=== PATIENT | female | born 1990 | race Caucasian/White ===

== ENCOUNTER 2017-03-28 14:48 | Emergency (ER) | payer OTHER, MEDICAID | END 2017-03-28 16:24 | disposition home or self-care (01) | LOC: E/R 14:48 | DX: J45.901 Unspecified asthma with (acute) exacerbation (principal) | CPT/HCPCS: 99284; Z7502 ==

== ENCOUNTER 2018-03-07 11:45 | Outpatient (CLI) | payer BC ==
[2018-03-07 12:24] LABS: ADD MAN DIFF? NO
[2018-03-07 12:38] LABS: ABNORMAL IP MESSAGE 1; BASOPHILS % 0.4 % (0.0-2.0); EOSINOPHILS # 0.1 10^3/ul (0.0-0.5); EOSINOPHILS % 1.5 % (0.0-7.0); HEMATOCRIT 37.9 % (37.0-47.0); LYMPHOCYTES # 2.3 10^3/ul (0.8-2.9); LYMPHOCYTES % 28.2 % (15.0-51.0); MEAN CORPUSCULAR HEMOGLOBIN 31.6 pg (29.0-33.0); MEAN CORPUSCULAR HGB CONC 34.3 g/dl (32.0-37.0); MEAN CORPUSCULAR VOLUME 92.2 fl (82.0-101.0); MEAN PLATELET VOLUME 13.4 fl (7.4-10.4); MONOCYTE # 0.7 10^3/ul (0.3-0.9); MONOCYTES % 8.7 % (0.0-11.0); NEUTROPHIL # 4.8 10^3/ul (1.6-7.5); NEUTROPHILS % 60.5 % (39.0-77.0); PLATELET COUNT 158 10^3/UL (140-415); RED BLOOD COUNT 4.11 10^6/ul (4.20-5.40); RED CELL DISTRIBUTION WIDTH 12.8 % (11.5-14.5)
[2018-03-07 13:00] LABS: ALANINE AMINOTRANSFERASE 16 IU/L (13-69); ALBUMIN/GLOBULIN RATIO 1.11; ALKALINE PHOSPHATASE 156 IU/L (42-121); ANION GAP 7 (5-13); ASPARTATE AMINO TRANSFERASE 25 IU/L (15-46); BILIRUBIN,INDIRECT 0.1 mg/dl (0-1.1); BILIRUBIN,TOTAL 0.1 mg/dl (0.2-1.3); BLOOD UREA NITROGEN 10 mg/dl (7-20); CALCIUM 9.7 mg/dl (8.4-10.2); CARBON DIOXIDE 21 mmol/L (21-31); CHLORIDE 107 mmol/L (97-110); CREATININE 0.61 mg/dl (0.44-1.00); Estimated GFR > 60 mL/min (>60); GLUCOSE 87 mg/dl (70-220); POTASSIUM 4.1 mmol/L (3.5-5.1); SODIUM 135 mmol/L (135-144); TOTAL PROTEIN 7.6 g/dl (6.1-8.1); URIC ACID 5.3 mg/dl (3.1-7.9)
[2018-03-07 13:06] LABS: INR 0.89; PROTIME 12.1 Sec (11.9-14.9); PT RATIO 0.9
[2018-03-07 13:07] LABS: PARTIAL THROMBOPLASTIN TIME 24.7 Sec (23.0-35.0)
[2018-03-07 13:32] LABS: ADD UMIC YES; UR ASCORBIC ACID NEGATIVE (NEGATIVE); UR BACTERIA MANY /HPF (NONE SEEN); UR BILIRUBIN (Dip) NEGATIVE (NEGATIVE); UR BLOOD (Dip) NEGATIVE (NEGATIVE); UR CLARITY SLIGHTLY CLOUDY (CLEAR); UR COLOR YELLOW (YELLOW); UR GLUCOSE (Dip) NEGATIVE (NEGATIVE); UR KETONES (Dip) NEGATIVE (NEGATIVE); UR LEUKOCYTE ESTERASE (Dip) 3+ Leu/ul (NEGATIVE); UR NITRITE (Dip) NEGATIVE (NEGATIVE); UR RBC 3 /HPF (0-5); UR SPECIFIC GRAVITY (Dip) 1.005 (1.003-1.030); UR SQUAMOUS EPITHELIAL CELL MANY /HPF (FEW); UR TOTAL PROTEIN (Dip) NEGATIVE (NEGATIVE); UR UROBILINOGEN (Dip) NEGATIVE (NEGATIVE); UR WBC > 182 /HPF (0-5)
[2018-03-07] MEDS: BETAMET NA PHOS/AC(6 MG/ML) 2 ML INJ SYG IM (14:52)
== END 2018-03-07 15:09 | disposition home or self-care (01) ==
LOC: OBT 11:45 → L-D 11:46 → OBT 15:09
DX: O13.3 Gestational [pregnancy-induced] hypertension without significant proteinuria, third trimester (principal); Z3A.36 36 weeks gestation of pregnancy
CPT/HCPCS: 76818; 80053; 81001; 84560; 85025; 85384; 85610; 85730

== ENCOUNTER 2018-03-08 14:50 | Outpatient (CLI) | payer BC ==
[2018-03-08] MEDS: BETAMET NA PHOS/AC(6 MG/ML) 2 ML INJ SYG IM (15:27)
== END 2018-03-08 16:17 | disposition home or self-care (01) ==
LOC: OBT 14:50 → L-D 14:52 → OBT 16:17
DX: O16.3 Unspecified maternal hypertension, third trimester (principal); Z3A.36 36 weeks gestation of pregnancy
CPT/HCPCS: 76818; 96372

== ENCOUNTER 2018-03-13 05:35 | Inpatient (IN) | payer BC ==
[2018-03-13 08:05] LABS: ADD MAN DIFF? NO
[2018-03-13 08:07] LABS: WHITE BLOOD COUNT 11.5 10^3/ul (4.8-10.8)
[2018-03-13 08:07] LABS: BASOPHIL # 0.1 10^3/ul (0.0-0.1); BASOPHILS % 0.4 % (0.0-2.0); EOSINOPHILS % 0.3 % (0.0-7.0); HEMATOCRIT 39.5 % (37.0-47.0); HEMOGLOBIN 13.4 g/dl (12.0-16.0); LYMPHOCYTES # 2.7 10^3/ul (0.8-2.9); LYMPHOCYTES % 23.8 % (15.0-51.0); MEAN CORPUSCULAR HEMOGLOBIN 31.3 pg (29.0-33.0); MEAN CORPUSCULAR HGB CONC 33.9 g/dl (32.0-37.0); MEAN CORPUSCULAR VOLUME 92.3 fl (82.0-101.0); MEAN PLATELET VOLUME 12.9 fl (7.4-10.4); MONOCYTE # 0.9 10^3/ul (0.3-0.9); MONOCYTES % 7.6 % (0.0-11.0); NEUTROPHIL # 7.7 10^3/ul (1.6-7.5); NEUTROPHILS % 67.1 % (39.0-77.0); PLATELET COUNT 163 10^3/UL (140-415); RED BLOOD COUNT 4.28 10^6/ul (4.20-5.40); RED CELL DISTRIBUTION WIDTH 12.6 % (11.5-14.5)
[2018-03-13 08:12] LABS: ADD UMIC YES; UR ASCORBIC ACID NEGATIVE (NEGATIVE); UR BACTERIA MANY /HPF (NONE SEEN); UR BILIRUBIN (Dip) NEGATIVE (NEGATIVE); UR BLOOD (Dip) 3+ mg/dL (NEGATIVE); UR CLARITY CLEAR (CLEAR); UR COLOR STRAW (YELLOW); UR GLUCOSE (Dip) NEGATIVE (NEGATIVE); UR KETONES (Dip) NEGATIVE (NEGATIVE); UR LEUKOCYTE ESTERASE (Dip) NEGATIVE Leu/ul (NEGATIVE); UR NITRITE (Dip) NEGATIVE (NEGATIVE); UR RBC 0 /HPF (0-5); UR SPECIFIC GRAVITY (Dip) 1.004 (1.003-1.030); UR SQUAMOUS EPITHELIAL CELL FEW /HPF (FEW); UR TOTAL PROTEIN (Dip) NEGATIVE (NEGATIVE); UR UROBILINOGEN (Dip) NEGATIVE (NEGATIVE); UR WBC 1 /HPF (0-5)
[2018-03-13 08:26] LABS: PROTIME 11.2 Sec (11.9-14.9); PT RATIO 0.9
[2018-03-13 08:27] LABS: PARTIAL THROMBOPLASTIN TIME 23.6 Sec (23.0-35.0)
[2018-03-13 08:30] LABS: ALANINE AMINOTRANSFERASE 24 IU/L (13-69); ALBUMIN 3.9 g/dl (3.3-4.9); ALBUMIN/GLOBULIN RATIO 1.08; ALKALINE PHOSPHATASE 156 IU/L (42-121); ANION GAP 14 (5-13); ASPARTATE AMINO TRANSFERASE 24 IU/L (15-46); BILIRUBIN,INDIRECT 0.2 mg/dl (0-1.1); BILIRUBIN,TOTAL 0.2 mg/dl (0.2-1.3); BLOOD UREA NITROGEN 11 mg/dl (7-20); CALCIUM 9.6 mg/dl (8.4-10.2); CARBON DIOXIDE 21 mmol/L (21-31); CHLORIDE 103 mmol/L (97-110); CREATININE 0.55 mg/dl (0.44-1.00); Estimated GFR > 60 mL/min (>60); GLUCOSE 92 mg/dl (70-220); POTASSIUM 4.5 mmol/L (3.5-5.1); SODIUM 138 mmol/L (135-144); TOTAL PROTEIN 7.5 g/dl (6.1-8.1); URIC ACID 5.8 mg/dl (3.1-7.9)
[2018-03-13] MEDS ORDERED: MINERAL OIL LIGHT 10 ML VIAL TOP (09:30)
[2018-03-13] MEDS ORDERED: IBUPROFEN 600 MG TAB PO (09:30)
[2018-03-13] MEDS ORDERED: CARBOPROST 250 MCG INJ IM (09:30)
[2018-03-13] MEDS ORDERED: MISOPROSTOL 200 MCG TAB PR (09:30)
[2018-03-13] MEDS ORDERED: METHYLERGONOVINE 0.2 MG INJ IM (09:30)
[2018-03-13] MEDS ORDERED: AMPICILLIN 2 GM/NS (PMX) 100 ML IV (09:30)
[2018-03-13] MEDS ORDERED: OXYTOCIN 30 UNITS/LR 500 ML IV (09:30)
[2018-03-13] MEDS ORDERED: LIDOCAINE 1% (MPF) 30 ML INJ INJ (09:30)
[2018-03-13] MEDS: LACTATED RINGER'S 1,000 ML IV ×4 (09:41→21:45)
[2018-03-13] MEDS: OXYTOCIN 30 UNITS/LR 500 ML IV (10:33)
[2018-03-13] MEDS ORDERED: AMPICILLIN 1 GM/NS (PMX) 50 ML IV (13:30)
[2018-03-13 15:42] LABS: RAPID PLASMA REAGIN NONREACTIVE (NR)
[2018-03-13] MEDS: BUTORPHANOL 2 MG INJ IV (17:23)
[2018-03-13] MEDS ORDERED: FENTAnyl 2MCG/ML-ROPIV 0.2% 100 ML (20:41)
[2018-03-13 20:52] LABS: HEPATITIS B SURFACE ANTIGEN NEGATIVE (NEGATIVE)
[2018-03-13] MEDS ORDERED: ONDANSETRON 4 MG INJ IV (21:00)
[2018-03-13] MEDS ORDERED: DIPHENHYDRAMINE 50 MG INJ IV (21:00)
[2018-03-13] MEDS ORDERED: NALOXONE (0.4 MG/ML) INJ IV (21:00)
[2018-03-13] MEDS: FENTAnyl 2MCG/ML-ROPIV 0.2% 100 ML BAG EPI (21:45)
[2018-03-14] MEDS: OXYTOCIN 30 UNITS/LR 500 ML IV ×2 (01:39→01:40)
[2018-03-14] MEDS: KETOROLAC 30 MG INJ IM (02:40)
[2018-03-14] MEDS ORDERED: CARBOPROST 250 MCG INJ IM (03:30)
[2018-03-14] MEDS ORDERED: ZOLPIDEM 5 MG TAB PO (03:30)
[2018-03-14] MEDS ORDERED: MISOPROSTOL 200 MCG TAB PR (03:30)
[2018-03-14] MEDS ORDERED: DIBUCAINE 1% 30 GM OINT TOP (03:30)
[2018-03-14] MEDS ORDERED: HYDROCODONE/APAP (5/325) TAB PO ×2 (03:30)
[2018-03-14] MEDS ORDERED: OXYTOCIN 30 UNITS/LR 500 ML IV (03:30)
[2018-03-14] MEDS ORDERED: METHYLERGONOVINE 0.2 MG INJ IM (03:30)
[2018-03-14] MEDS: LANOLIN HPA 1 PKT TOP (05:25)
[2018-03-14] MEDS: BENZOCAINE 20% 56 ML SPRAY TOP (05:25)
[2018-03-14] MEDS: WITCH HAZEL/GLYCERIN PAD PR (05:25)
[2018-03-14] MEDS: CEPHALEXIN 500 MG CAP PO ×4 (05:25→23:26)
[2018-03-14] MEDS: IBUPROFEN 600 MG TAB PO ×4 (05:26→23:26)
[2018-03-14] MEDS: LACTATED RINGER'S 1,000 ML IV* ×2 (05:43→08:31)
[2018-03-14] MEDS: SENNA/DOCUSATE NA (8.6MG/50MG) TAB PO ×2 (08:30→20:50)
[2018-03-14] MEDS: MAGNESIUM HYDROXIDE 30ML CUP PO ×2 (08:30→20:50)
[2018-03-14 13:23] LABS: ADD MAN DIFF? NO
[2018-03-14 13:26] LABS: BASOPHIL # 0.1 10^3/ul (0.0-0.1); BASOPHILS % 0.3 % (0.0-2.0); EOSINOPHILS % 0.1 % (0.0-7.0); LYMPHOCYTES # 3.4 10^3/ul (0.8-2.9); LYMPHOCYTES % 19.6 % (15.0-51.0); MEAN CORPUSCULAR HEMOGLOBIN 31.3 pg (29.0-33.0); MEAN CORPUSCULAR HGB CONC 33.3 g/dl (32.0-37.0); MEAN CORPUSCULAR VOLUME 93.8 fl (82.0-101.0); MONOCYTE # 1.3 10^3/ul (0.3-0.9); MONOCYTES % 7.7 % (0.0-11.0); NEUTROPHIL # 12.4 10^3/ul (1.6-7.5); NEUTROPHILS % 71.8 % (39.0-77.0); PLATELET COUNT 132 10^3/UL (140-415); RED BLOOD COUNT 3.52 10^6/ul (4.20-5.40); RED CELL DISTRIBUTION WIDTH 13.6 % (11.5-14.5)
[2018-03-14 13:26] LABS: WHITE BLOOD COUNT 17.2 10^3/ul (4.8-10.8)
[2018-03-15] MEDS: IBUPROFEN 600 MG TAB PO ×4 (05:48→23:42)
[2018-03-15] MEDS: CEPHALEXIN 500 MG CAP PO ×4 (05:48→23:42)
[2018-03-15 07:29] LABS: ADD MAN DIFF? NO
[2018-03-15 07:32] LABS: WHITE BLOOD COUNT 13.5 10^3/ul (4.8-10.8)
[2018-03-15 07:32] LABS: BASOPHILS % 0.3 % (0.0-2.0); EOSINOPHILS # 0.1 10^3/ul (0.0-0.5); HEMATOCRIT 32.2 % (37.0-47.0); HEMOGLOBIN 10.6 g/dl (12.0-16.0); LYMPHOCYTES # 3.7 10^3/ul (0.8-2.9); LYMPHOCYTES % 27.4 % (15.0-51.0); MEAN CORPUSCULAR HEMOGLOBIN 31.6 pg (29.0-33.0); MEAN CORPUSCULAR HGB CONC 32.9 g/dl (32.0-37.0); MEAN CORPUSCULAR VOLUME 96.1 fl (82.0-101.0); MEAN PLATELET VOLUME 12.8 fl (7.4-10.4); MONOCYTE # 1.1 10^3/ul (0.3-0.9); MONOCYTES % 8.1 % (0.0-11.0); NEUTROPHIL # 8.4 10^3/ul (1.6-7.5); NEUTROPHILS % 62.6 % (39.0-77.0); PLATELET COUNT 126 10^3/UL (140-415); RED BLOOD COUNT 3.35 10^6/ul (4.20-5.40); RED CELL DISTRIBUTION WIDTH 13.4 % (11.5-14.5)
[2018-03-15] MEDS: MAGNESIUM HYDROXIDE 30ML CUP PO ×2 (09:00→21:00)
[2018-03-15] MEDS: SENNA/DOCUSATE NA (8.6MG/50MG) TAB PO ×2 (09:00→21:00)
[2018-03-15] MEDS: LACTATED RINGER'S 1,000 ML IV* ×3 (19:18→19:38)
[2018-03-16] MEDS: LACTATED RINGER'S 1,000 ML IV* ×2 (03:18→11:18)
[2018-03-16] MEDS: CEPHALEXIN 500 MG CAP PO ×2 (05:39→12:09)
[2018-03-16] MEDS: IBUPROFEN 600 MG TAB PO ×2 (05:40→12:09)
[2018-03-16] MEDS: MAGNESIUM HYDROXIDE 30ML CUP PO (08:56)
[2018-03-16] MEDS: SENNA/DOCUSATE NA (8.6MG/50MG) TAB PO (08:56)
[2018-03-16] MEDS: VARICELLA VACCINE LIVE/PF 1,350 UNIT/0.5 ML ML SC* (08:57)
[2018-03-16] MEDS: MEASLES,MUMPS,RUBELLA VACCINE INJ SC* (08:57)
[2018-03-16] MEDS: DIPHTH/TET/ACEL PERTUSS (ADULT) 0.5 ML VIAL IM* (08:57)
== END 2018-03-16 18:11 | disposition home or self-care (01) | DRG 806 ==
LOC: OBT 05:35 → PP1 03-14 03:14 → L-D 05:35 → OBT 09:24 → L-D 09:00
PROC: 10E0XZZ Delivery of Products of Conception, External Approach (ICD-10-PCS; principal; 2018-03-13)
DX: O13.4 Gestational [pregnancy-induced] hypertension without significant proteinuria, complicating childbirth (principal); O41.03X0 Oligohydramnios, third trimester, not applicable or unspecified; Z37.0 Single live birth; Z3A.37 37 weeks gestation of pregnancy
CPT/HCPCS: 62319; 76818; 80053; 81001; 84560; 85025; 85384; 85610; 85730; 86592; 86850; 86900; 86901; 87086; 87340; 90716; 99464